=== PATIENT | male | born 1985 | race African-American/Black ===

== ENCOUNTER 2016-10-12 02:27 | Emergency (ER) | payer SELFPAY ==
--- NOTE | ~2016-10-12 | CR72 ---
[facility] A Service of [facility] & [facility] RADIOLOGY TEXT RESULTS PATIENT: ROMEO KOVACS LOCATION: [facility] : [birth year] UNIT #: [id number] AGE: [address]: Robyn Forman MD SEX: M ORDER DR: [id number] [facility] [address]. [place], [place] [address] [id number] MR#: [id number] Acc #: [id number] NAME: ROMEO KOVACS : 1985 SEX: M STUDY DATE/TIME: 10/12/2016 04:55 UNIT: [facility] ROOM: STUDY DESCRIPTION: CR Chest Single View Portable Attending Physician: Robyn Forman M.D. Ordering Physician: Rohan Fregoso M.D. Primary Care Physician: Primary Care Physician No MEDICAL IMAGING REPORT This report is preliminary unless electronic signature is present EXAM Portable chest, 10/12 at 04:55 INDICATION Chest pain that started this morning. History of hypertension. COMPARISON 05/30/2007 FINDINGS A single AP portable view of the chest shows both lungs to be clear. The heart is normal in size. The mediastinal contour is normal. No significant bone abnormalities are seen. IMPRESSION Normal portable chest. Dictated by... Marcos Wallace Jr., M.D. THIS IS AN ELECTRONICALLY VERIFIED REPORT Marcos Wallace Jr., M.D. at 10/13/2016 4:25 AM LEILA/alvaro TD: 10/12/2016 08:21 JOB #: [id number] MEDICAL IMAGING REPORT Page 1 of 1 COPY
--- NOTE | ~2016-10-12 | EKG ---
PATIENT: ROMEO KOVACS UNIT #: [id number] Ventricular Rate: 71 BPM Atrial Rate: 71 BPM P-R Interval: 140 ms QRS Duration: 96 ms Q-T Interval: 392 ms QTC Calculation(Bezet): 425 ms P [place]: 68 degrees Calculated R [place]: 84 degrees Calculated T [place]: 67 degrees Diagnosis Line: Normal sinus rhythm Diagnosis Line: Normal ECG Diagnosis Line: When compared with ECG of 03-FEB-2013 20:16, Diagnosis Line: No significant change was found Diagnosis Line: Confirmed by CASSANDRA OCNNOLLY MD ([id number]) on Diagnosis Line: 10/12/2016 10:37:51 PM INTERPRETING MD: [email or web address]
[~2016-10-12 02:27] MED LIST: AMOXICILLIN PO; ASPIRIN PO; ASPIRINEC; BACTRIM DS TABL1 TA2 PO; KETOPROFEN; LISINOPRIL; LISINOPRIL20 MG PO; LORTAB 7.51 TAB PO; MOTRIN400 MG PO; VICODIN 5/1 TAB 5/50 PO; ZYRTEC PO; [UNRECOGNIZED DRUG - OTHER]
[2016-10-12 04:08] LABS: BASOPHIL% 0.4 % (0-2.5); DIFF IND NO; EOSINOPHIL# 0.6 X10e3 (0-0.7); EOSINOPHIL% 7.7 % (0.0-7.0); HEMATOCRIT 39.4 % (38.0-50.0); HEMOGLOBIN 12.2 gm/dL (13.0-16.0); MEAN CORPUSCULAR HEMOGLOBIN 21.4 PG (28-34); MEAN PLATELET VOLUME 8.4 FL (6.5-11.5); MONOCYTE# 0.6 X10e3 (0-1.0); MONOCYTE% 7.5 % (3.0-12.0); NEUTROPHIL% 60.4 % (40-75); PLATELET COUNT 234 X10e3 (140-420); RED BLOOD COUNT 5.71 X10e (3.90-5.60); RED CELL DISTRIBUTION WIDTH 15.5 % (11.0-15.5); WHITE BLOOD COUNT 8.2 X10e3 (4.0-10.5)
[2016-10-12 04:11] LABS: POC - CKMB <1.0 ng/mL (0.0-7.9); POC - TROPONIN <0.05 ng/mL (<=0.05)
[2016-10-12 04:47] LABS: ALBUMIN SERUM 4.7 g/dL (3.5-5.0); BILIRUBIN, DIRECT 0.1 mg/dL (0.0-0.2); BILIRUBIN,INDIRECT 0.5 mg/dL (0.0-0.9); BILIRUBIN,TOTAL 0.6 mg/dL (0.2-2.0); CALCIUM SERUM 8.8 mg/dL (8.4-10.2); GLOM FILT RATE Estimated 114.9 mL/min (>60); POTASSIUM 3.7 mmol/L (3.5-5.1); PROTEIN TOTAL SERUM 7.9 g/dL (6.0-8.3)
[2016-10-12 05:29] LABS: POC - CKMB <1.0 ng/mL (0.0-7.9); POC - TROPONIN <0.05 ng/mL (<=0.05)
== END 2016-10-12 07:40 | disposition home or self-care (01) ==
LOC: CED 02:27
PROVIDERS: Emergency Medicine
DX: R06.00 Dyspnea, unspecified (principal); R07.9 Chest pain, unspecified; F41.9 Anxiety disorder, unspecified; F17.210 Nicotine dependence, cigarettes, uncomplicated; Z79.899 Other long term (current) drug therapy; Z88.5 Allergy status to narcotic agent
CPT/HCPCS: 36415; 71010; 80048; 80076; 82553; 84484; 85025; 85379; 93005; 99285